=== PATIENT | male | born 1975 | race Caucasian/White ===

== ENCOUNTER 2017-05-30 19:18 | Emergency (ER) | payer SELFPAY ==
[~2017-05-30] VITALS: Ht 177.8 cm; Wt 75.0 kg
[2017-05-30 19:43] VITALS: BP 117/68; PULSE 118; RESP 18; TEMP 101.3; O2SAT 98
--- NOTE | 2017-05-30 20:55 | PD ---
HPI Chief Complaint: Fever Time Seen by Provider: 20:44 Travel History International Travel<30 days: No Contact w/Intl Traveler<30days: No Traveled to known affect area: No History of Present Illness HPI 42-year-old male presents to the emergency department for evaluation of fever, sore throat, body aches, headache that started yesterday. Patient states he last took Tylenol at 3 PM. Patient has not had any ibuprofen today. He has no chronic medical problems and takes no prescribed medications. No exacerbating or alleviating factors. He states he does feel nauseated, but no no vomiting. No chest pain shortness breath. No abdominal pain. No diarrhea. Mild severity. PFSH Past Medical History Medical History: Denies Significant Hx Diminished Hearing: No Immunizations Current: Yes Past Surgical History Surgical History: No Previous Surgery Social History Alcohol Use: No Tobacco Use: Yes (2-3 CIGS/DAY) Substance Use: No Allergies-Medications (Allergen,Severity, Reaction): Coded Allergies: No Known Allergies (Unverified , 05/30/17) Reported Meds & Prescriptions Reported Meds & Active Scripts Active No Active Prescriptions or Reported Medications Review of Systems Except as stated in HPI: all other systems reviewed are Neg Physical Exam Narrative GENERAL: Well-nourished, well-developed male patient, temp of 101.3 SKIN: Focused skin assessment warm/dry. No skin rashes noted. HEAD: Normocephalic. Atraumatic. ENT: Mucosa pink and moist. Bilateral tonsils are erythematous, 2+, without exudates. No uvular edema. No uvular, palatal, or tonsillar deviation. Airway patent. Nasal turbinates appear normal without nasal blood, purulent drainage or septal hematoma. Bilateral tympanic membranes clear without erythema or perforation. EYES: No scleral icterus. No injection or drainage. NECK: Supple, trachea midline. No JVD or lymphadenopathy. CARDIOVASCULAR: Regular rate and rhythm without murmurs, gallops, or rubs. RESPIRATORY: Breath sounds equal bilaterally. No accessory muscle use. Lung sounds are clear to auscultation. GASTROINTESTINAL: Abdomen soft, non-tender, nondistended. MUSCULOSKELETAL: No cyanosis, or edema. BACK: Nontender without obvious deformity. No CVA tenderness. Data Data Last Documented VS Vital Signs Date Time Temp Pulse Resp B/P (MAP) Pulse Ox O2 Delivery O2 Flow Rate FiO2 05/30/17 21:00 104 18 109/68 (82) 98 Room Air 05/30/17 19:43 101.3 Orders Orders Group A Rapid Strep Screen (05/30/17 20:51) Influenzae A/B Antigen (05/30/17 20:51) Acetaminophen (Tylenol) (05/30/17 21:00) Ibuprofen (Motrin) (05/30/17 21:00) Penicillin V Potassium (Veetids) (05/30/17 22:00) MDM Medical Decision Making Medical Screen Exam Complete: Yes Emergency Medical Condition: Yes Medical Record Reviewed: Yes Differential Diagnosis Influenza versus strep pharyngitis versus viral syndrome Narrative Course 42-year-old male presents to the emergency department for evaluation of flulike symptoms that started yesterday. He does appear well on exam. He has no medical problems and takes no prescribed medications. Patient is given Tylenol 650 mg p.o., ibuprofen 800 mg p.o. Strep swab and influenza swabs are ordered and pending Strep is positive. Influenza is positive for influenza a. Patient is given first dose of Pen-Vee K here in the emergency department. He will be discharged prescription for Pen-Vee K, Tamiflu. He is to take Tylenol/ ibuprofen [id number] as needed for body aches/fever. He is to drink plenty of fluids and rest. He is to follow the primary care physician return here for any acute worsening of symptoms. The patient was discharged in stable condition with instructions, including return instructions and follow up instructions. Diagnosis Primary Impression: Strep pharyngitis Additional Impression: Influenza A Referrals: Primary Care Physician call for appointment Patient Instructions: General Instructions, Influenza (ED), Strep Throat (ED) Departure Forms: Tests/Procedures, Work Release Enter return to work date: Jun 02, 2017 Additional Instructions: Take penicillin as directed until gone. Take Tamiflu as directed. [id number] Tylenol every 4 hours as needed for fever/body aches. Over-the -counter ibuprofen every 6-8 hours as needed for fever/body aches. Drink plenty of fluids. Rest. Follow-up with a primary care physician. Return to the emergency department for any acute worsening of symptoms. Med/Other Pt SpecificInfo: Prescription(s) given Scripts Oseltamivir (Tamiflu) 75 Mg Cap 75 MG PO BID for Mgmt Viral Infection for 5 Days, #10 CAP 0 Refills Prov: Ashlee Chery 05/30/17 Penicillin V Potassium (Penicillin V Potassium) 500 Mg Tab 500 MG PO Q8H for Infection for 10 Days, #30 TAB 0 Refills Prov: Ashele Chery 05/30/17 Disposition: 01 DISCHARGE HOME Condition: Stable Ashlee Chery May 30, 2017 20:55
[2017-05-30 21:00] VITALS: BP 109/68; PULSE 104; RESP 18; O2SAT 98
[2017-05-30] MEDS ORDERED: IBUPROFEN 800 MG TAB PO ONE (21:00)
[2017-05-30] MEDS ORDERED: ACETAMINOPHEN 325 MG TAB PO ONE (21:00)
[2017-05-30 21:58] VITALS: TEMP 99.7
[2017-05-30] MEDS ORDERED: PENI500T PO (21:58)
[2017-05-30] MEDS ORDERED: OSEL75 PO (21:58)
[2017-05-30] MEDS ORDERED: PENICILLIN V POTASSIUM 500 MG TAB PO ONE (22:00)
== END 2017-05-30 22:09 | disposition home or self-care (01) ==
LOC: NEPC 19:18
DX: J02.0 Streptococcal pharyngitis (principal); J10.1 Influenza due to other identified influenza virus with other respiratory manifestations; F17.210 Nicotine dependence, cigarettes, uncomplicated
CPT/HCPCS: 87804; 87880; 99283